=== PATIENT | male | born 1970 | race Caucasian/White ===

== ENCOUNTER 2019-11-22 16:39 | Inpatient (IN) | payer BC, OTHER ==
[~2019-11-22] VITALS: Ht 157.5 cm; Wt 70.3 kg
[2019-11-22 16:44] VITALS: BP 116/48
[2019-11-22 17:45] LABS: CALCIUM 7.7 mg/dL (8.5-10.1); CREATININE 0.8 mg/dL (0.7-1.3); POTASSIUM 3.8 mmol/L (3.5-5.1)
[2019-11-22 17:48] LABS: % SATURATION 2 % (20-39); IRON 11 ug/dL (65-175); TIBC 482 ug/dL (250-450)
[2019-11-22 17:51] LABS: ALBUMIN 3.3 g/dL (3.4-5.0); TOTAL BILIRUBIN 0.8 mg/dL (0.2-1.0); TOTAL PROTEIN 6.9 g/dL (6.4-8.2)
[2019-11-22 17:57] LABS: MCH 18.4 pg (26.0-34.0); MCHC 29.4 g/dL (28.0-37.0); MCV 62.4 fL (80.0-100.0); PLATELET COUNT 92 thou/uL (150-400); RBC 2.02 mil/uL (4.50-6.00); RDW 20.4 % (10.5-14.5); WBC 2.5 thou/uL (4.0-11.0)
[2019-11-22 17:59] LABS: HEMATOCRIT 12.6 % (42.0-52.0); HEMOGLOBIN 3.7 gm/dL (14.0-18.0)
[2019-11-22 18:26] LABS: ABSOLUTE NEUTROPHILS 1.7 thou/uL (1.4-8.2)
[2019-11-22 18:27] LABS: ANISOCYTOSIS 2+; HYPOCHROMASIA 3+; MICROCYTES 3+
[2019-11-22 18:29] LABS: OVALOCYTES 1+; POIKILOCYTOSIS 1+
[2019-11-22 18:30] LABS: POLYCHROMASIA OCCASIONAL; SCHISTOCYTES OCCASIONAL
[2019-11-22 18:43] VITALS: BP 102/55; BP 102/58; BP 103/58; BP 109/64; BP 97/58
[2019-11-22 19:50] LABS: ABSOLUTE RETIC COUNT 0.0587 10^6/uL
[2019-11-22 20:04] LABS: INR 1.1; PROTIME 10.8 Seconds (9.3-11.4)
[2019-11-22 20:07] VITALS: BP 112/71
[2019-11-22 20:14] VITALS: BP 112/71
[2019-11-22 20:19] LABS: FOLIC ACID 20.1 ng/mL (8.6-58.9)
[2019-11-22 20:59] VITALS: BP 109/64
[2019-11-22 21:26] VITALS: BP 114/63
[2019-11-23] VITALS (8 sets, daily range): BP systolic 88–117; BP diastolic 51–70
--- NOTE | 2019-11-23 00:27 | NUR ---
PT ADMITTED TO UNIT AT APPROXIMATELY 2130. PT IS A/O X4. DENIES ANY PAIN OR DISCOMFORT. VSS. ADMISSION COMPLETE. REFUSED SCD'S. PT IS UP AD OBDULIA. EDUCATED ON HOW TO USE CALL LIGHT. AT THIS TIME PT IS LYING IN HIS BED AND APPEARS TO BE SLEEPING. WILL CONTINUE TO MONITOR. AWAITING LAB RESULTS ON HGB.
[2019-11-23] MEDS ORDERED: FUROSEMIDE 20 M20 MG PO (02:23)
[2019-11-23 11:55] LABS: MCH 21.5 pg (26.0-34.0)
[2019-11-23 11:57] LABS: HEMATOCRIT 22.2 % (42.0-52.0); MCHC 30.4 g/dL (28.0-37.0); RBC 3.14 mil/uL (4.50-6.00); RDW 26.9 % (10.5-14.5); WBC 2.3 thou/uL (4.0-11.0)
[2019-11-23 12:07] LABS: HEMOGLOBIN 6.7 gm/dL (14.0-18.0); MCV 70.7 fL (80.0-100.0)
[2019-11-23 12:13] LABS: CALCIUM 7.9 mg/dL (8.5-10.1); CREATININE 0.7 mg/dL (0.7-1.3); POTASSIUM 4.3 mmol/L (3.5-5.1)
--- NOTE | 2019-11-23 12:43 | NUR ---
Received awake on bed. On nothing per orem- pt informed and aware; mouth swabs offered. A+Ox4. On room air.On telemetry; no complains of chest pain, crushing sensation and heaviness. Continent of bowel and bladder, able to use urinal- output measured and recorded accordingly. Assisted in ADLs. With NS at 100cc/hr, infusing well at R FA. Started 2nd unit of blood transfusion, infused as per protocol. With consult for GI, and Hematology- consults called in. No nausea, no vomiting and no abdominal pain noted. Pt seen and examined by Dr Adams this AM: requested for records from [facility]- forms signed and faxed to [facility], a/w response; Surgery consult- called in, a/w physician's rounds, for ultrasound- pt brought down for ultrasound, tolerated procedure well. Covid swab done, possible EGD in AM. Gastro STONE TRIMMER asked if pt can have clear liquid diet today since planned procedure is for tomorrow- as per STONE TRIMMER, pt can have Clear liquid today then NPO post midnight. Hb for 6.7 post 3rd unit relayed to Gastro STONE TRIMMER and Dr Bey; as per Dr Bey to transfuse another unit- a/w orders. To continue monitoring patient.
[2019-11-23 21:13] LABS: HEMOGLOBIN 7.4 gm/dL (14.0-18.0)
--- NOTE | 2019-11-23 21:50 | NUR ---
ASSUMED CARE OF PT AT 1900. PT IS A/O X4 AND UP AD OBDULIA. UP SBA WHEN IV IS IN PLACE GIVING FLUIDS. PT DENIES ANY PAIN OR DISCOMFORT AT THIS TIME. AFEBRILE. PT STATES HE IS FEELING THAT HE HAS MORE ENERGY SINCE HE WAS GIVEN BLOOD TRANSFUSIONS. 2029 LAB RESULT FOR HEMOGLOBIN WAS 7.4. AT THIS TIME PT IS LYING IN HIS BED AND APPEARS TO BE SLEEPING. CALL LIGHT IS WITHIN REACH. WILL CONTINUE TO MONITOR.
[2019-11-24 05:57] VITALS: BP 105/60
[2019-11-24 07:39] VITALS: BP 106/65
[2019-11-24 12:39] VITALS: BP 111/77
[2019-11-24 13:18] LABS: HEMATOCRIT 25.1 % (42.0-52.0); HEMOGLOBIN 7.7 gm/dL (14.0-18.0); MCH 22.1 pg (26.0-34.0); MCHC 30.7 g/dL (28.0-37.0); RBC 3.49 mil/uL (4.50-6.00); RDW 26.7 % (10.5-14.5); WBC 2.3 thou/uL (4.0-11.0)
--- NOTE | 2019-11-24 13:43 | NUR ---
PT ADMITTED RELATED TO ANEMIA REQUIRING TRANSFUSION. CM REVIEWED CHART AND SPOKE WITH CARE TEAM. CM SPOKE WITH PT AT [facility] THIS DAY. PT IS A&O X4. CM ROLE INTRODUCED. PT INDICATED THAT HE RESIDES IN A HOUSE WITH FAMILY. PT INDICATED NO STEPS TO ENTER AND 1 STEP INSIDE. 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 PT INDICATED HE PLANS TO RETURN HOME ONCE MEDICALLY STABLE. PT HAD RECIEVED BLOOD TRANSFUSION DURING STAY AND IS GETTING AN EGD TODAY. CARE TEAM INDICATED PT MAY BE MEDICALLY STABLE TO DC HOME TODAY DEPENDING ON EGD. CM TO FOLLOW INDICATED WITH DC PLANNING.
[2019-11-24 16:05] VITALS: BP 118/80
[2019-11-24 19:44] VITALS: BP 11/62
--- NOTE | 2019-11-25 02:52 | NUR ---
PATIENT AOX4 MAKES NEEDS KNOWN. PATIENT USES URINAL AT NIGHT. NO BLEEDING NOTED THIS SHIFT. PATIENT UP AT OBDULIA. PATIENT IN BED ASLEEP AT THIS TIME BREATHING REGULAR AND UNLABOURED.
[2019-11-25 06:21] LABS: HEMATOCRIT 25.2 % (42.0-52.0); HEMOGLOBIN 7.8 gm/dL (14.0-18.0); MCH 22.5 pg (26.0-34.0); MCV 72.5 fL (80.0-100.0); RBC 3.47 mil/uL (4.50-6.00); RDW 27.7 % (10.5-14.5); WBC 2.3 thou/uL (4.0-11.0)
[2019-11-25 06:43] LABS: CREATININE 0.8 mg/dL (0.7-1.3); MAGNESIUM 1.9 mg/dL (1.8-2.4); POTASSIUM 4.1 mmol/L (3.5-5.1)
[2019-11-25 07:54] VITALS: BP 115/60
[2019-11-25] MEDS ORDERED: ALDACTONE50 MG PO (09:55)
[2019-11-25] MEDS ORDERED: FUROSEMIDE 20 M20 MG PO (09:55)
[2019-11-25] MEDS ORDERED: PROTONIX40 M4 PO (09:56)
[2019-11-25] MEDS ORDERED: PROPRANOLOL 1010 MG PO (10:00)
[2019-11-25] MEDS ORDERED: IRON325 PO (10:04)
--- NOTE | 2019-11-25 10:14 | P ---
[facility] [place] [address] PROCEDURE REPORT Name: JUDIE BURNETTJENNIFER Room #: 455-P [facility] IN ..#: [id number] Admission: 11/22/19 Attend Phys: Trav Matosn MD Discharge: Date of : 66 Report #: [id number] THIS REPORT FOR: cc: Dorinda Estrada MD, Nora P. MD McElhinney, Christian C. MD ~ CC: Dr. Per Adams MD DATE OF SERVICE: 11/24/2019 PROCEDURE PERFORMED: Upper endoscopy. HISTORY OF PRESENT ILLNESS: The patient is a 49-year-old male with a history of cirrhosis, ascites and reportedly esophageal varices, which have been banded in the past, last one being over a year ago. The patient denies any melena, bright red blood per rectum, no nausea, vomiting, no hematemesis; however, on admission, he was noted to have significant anemia with a hemoglobin of 3.7. He has now been transfused 4 units of packed cells. His hemoglobin today is 7.7. Again, denies any evidence of bleeding. In fact, he had a stool here that was Hemoccult negative x 1. He is also pancytopenic with a white blood cell count of 2.3 and a platelet count of 65,000. Plan is for upper endoscopy. DESCRIPTION OF PROCEDURE: The risks and benefits of the procedure were explained to the patient, those risks including but not limited to bleeding, perforation, the risk of sedation as well as potential risk for bleeding. He understood these risks and gave informed consent. Sedation was given using propofol per anesthesia. Next, using a standard Olympus upper endoscope, the scope was placed in the patient's mouth and advanced under direct vision through the esophagus, stomach and into the second portion of the duodenum. The larynx was normal in appearance. The upper and mid esophagus was normal. In the distal esophagus, grade 2 esophageal varices were noted. There was no evidence of bleeding or stigmata of recent bleeding. There was one red spot; however, this was an area that was flat; therefore, I would not attempt banding, as far as the grade 2 varices these were fairly small and I did not feel like banding would be helpful in fact may induce bleeding. In the stomach, there was a [id number]-mx-[id number] gastritis in the fundus and upper body. No evidence of bleeding. The antrum was normal. The pylorus was normal and patent. The duodenal bulb, first and second portion were all normal. The scope was then withdrawn and the procedure terminated. The patient tolerated the procedure well. IMPRESSION: [facility] [address] [place] [address] PROCEDURE REPORT Name: JENNIFER AGUIRRE Room #: 455-P [facility] M.R.#: [id number] Admission: 11/22/19 Attend Phys: Trav Matson MD Discharge: Date of : 66 Report #: [id number] 1. Grade 2 esophageal varices in the distal esophagus, 1 red spot again on a flat area of mucosa not able to consider banding this. Again, he is Hemoccult negative and there are no signs of bleeding at this time. 2. Gastritis. No evidence of bleeding. 3. Otherwise, normal upper endoscopy. RECOMMENDATIONS: 1. Would continue daily PPI therapy. 2. Would consider possible banding of other varices if there are signs of bleeding in the future. 3. Would recommend a beta ravin and continuing the patient's diuretics. We will continue to monitor hemoglobin. Thank you for allowing me to participate in his care. <ELECTRONICALLY SIGNED> By: Colin Peres MD 11/25/19 1014 [id number] [id number] Colin Peres MD /nt
[2019-11-25 10:21] VITALS: BP 115/60
--- NOTE | 2019-11-25 10:31 | NUR ---
PT ALERT AND ORIENTED TIMES FOUR. VSS, IVF INFUSING PER ORDER. SR ON MULUGETA. PT DENIES PAIN/SOA. PT UP WITH STANDBY ASSIST. PT TOLERATES MEDS AND MEALS. PLANS FOR DISCHARGE TODAY PT PROGRESSING TOWRADS POC GOALS.
--- NOTE | 2019-11-25 13:51 | NUR ---
CARE TEAM INDICATED THAT PT IS MEDICALLY STABLE TO DISCHARGE THIS DAY WITH OP GI FOLLOW UP. PT IS TO DC HOME TO SELF CARE. NO OTHER CM INTERVENTION INDICATED. CASE CLOSED.
== END 2019-11-25 12:09 | disposition home or self-care (01) | DRG 378 ==
LOC: ER 16:39 → EROBS 18:46 → 4W 18:46
PROVIDERS: Internal Medicine; Nurse Practitioner Family; Physician Assistant; Student in an Organized Health Care Education/Training Program; ADMIT Hospitalist; ATTEND Hospitalist
PROC: 30233N1 Transfusion of Nonautologous Red Blood Cells into Peripheral Vein, Percutaneous Approach (ICD-10-PCS; principal; 2019-11-22)
PROC: 0DJ08ZZ Inspection of Upper Intestinal Tract, Via Natural or Artificial Opening Endoscopic (ICD-10-PCS; 2019-11-24)
DX: K92.2 Gastrointestinal hemorrhage, unspecified (principal); R18.8 Other ascites; D50.9 Iron deficiency anemia, unspecified; K43.9 Ventral hernia without obstruction or gangrene; K74.60 Unspecified cirrhosis of liver; D69.6 Thrombocytopenia, unspecified; F10.20 Alcohol dependence, uncomplicated; K42.9 Umbilical hernia without obstruction or gangrene; Z79.899 Other long term (current) drug therapy
CPT/HCPCS: 10045; 62110; 62900; 70005

== ENCOUNTER → 2020-01-06 | Outpatient (CLI) | payer BC, OTHER ==
[~2020-01-06] MED LIST: ALDACTONE50 MG PO; FUROSEMIDE 20 M20 MG PO; IRON325 PO; MIRALAX17 GM PO; OXYCODONE HCL 55 MG PO; PROPRANOLOL 1010 MG PO; PROTONIX40 M4 PO; SENNA-TIME S T1 EACH PO
== END ==
LOC: LAB 14:37
PROVIDERS: ATTEND Student in an Organized Health Care Education/Training Program
DX: Z01.812 Encounter for preprocedural laboratory examination (principal); Z20.828 Contact with and (suspected) exposure to other viral communicable diseases

== ENCOUNTER 2020-01-10 06:22 | Day surgery (SDC) | payer BC, OTHER ==
[~2020-01-10] VITALS: Ht 157.5 cm; Wt 67.1 kg
[~2020-01-10 06:22] MED LIST changes: -MIRALAX17 GM PO; -OXYCODONE HCL 55 MG PO; -SENNA-TIME S T1 EACH PO
[2020-01-10 07:25] LABS: CALCIUM 8.7 mg/dL (8.5-10.1); CREATININE 0.8 mg/dL (0.7-1.3); INR 1.1; POTASSIUM 3.9 mmol/L (3.5-5.1); PROTIME 11.4 Seconds (9.3-11.4)
[2020-01-10 07:26] LABS: HEMATOCRIT 39.8 % (42.0-52.0); MCH 29.3 pg (26.0-34.0); MCHC 32.7 g/dL (28.0-37.0); MCV 89.5 fL (80.0-100.0); RBC 4.45 mil/uL (4.50-6.00); RDW 26.3 % (10.5-14.5)
[2020-01-10 07:31] LABS: ALBUMIN 3.8 g/dL (3.4-5.0); TOTAL BILIRUBIN 1.3 mg/dL (0.2-1.0); TOTAL PROTEIN 7.4 g/dL (6.4-8.2)
[2020-01-10 07:48] VITALS: BP 109/78
[2020-01-10] MEDS ORDERED: MIRALAX17 GM PO (09:29)
[2020-01-10] MEDS ORDERED: OXYCODONE HCL 55 MG PO (09:29)
[2020-01-10] MEDS ORDERED: SENNA-TIME S T1 EACH PO (09:30)
[2020-01-10 09:50] VITALS: BP 109/78
--- NOTE | 2020-01-12 18:07 | PATH ---
[facility] [address] [place] [address] PATHOLOGY RPT PROCEDURE Name: PATRICK AGUIRRE Room #: [place] [facility] [place].R.#: [id number] Admission: 01/10/20 Date of : 66 Discharge: 01/10/20 Report #: [id number] Path Case #: [id number] [facility] Accession Number: [id number] . 01 Material submitted: . hernia - UMBILICAL HERNIA SAC . 01 Clinical history: . UMBILICAL HERNIA AND CIRRHOSIS . 02 Diagnosis: Umbilical hernia sac, repair: - Dense fibrovascular connective tissue with congestion and reparative changes, compatible with hernia sac. - Overlying skin showing reactive changes. (IUV/db; 01/12/2020) LBQ 01/12/2020 1521 Local . 02 Electronically signed: . Anabel Coker MD, Pathologist NPI- [id number] . 01 Gross description: . The specimen is received in formalin, labeled "Patrick Red[place], umbilical hernia sac". Received is a segment of wrinkled light brown skin with attached fibromembranous tissue measuring 7.9 x 6.3 x 2.8 cm in greatest dimensions. No distinct nodules or lesions are noted grossly. The specimen is submitted representatively in cassette A1. (CAA; 01/11/2020) QA/[facility] 01/11/2020 1757 Local . 02 Pathologist provided ICD-10: K44.9, K74.60 . 02 CPT . 903304 Specimen Comment: A courtesy copy of this report has been sent to [phone] Specimen Comment: [phone] Specimen Comment: Report sent to / DR MARRERO Performed at: [address] [id number] MD Ramses Collins MD Phone: [phone] Performed at: [address] [id number] [address] [address] PATHOLOGY RPT PROCEDURE Name: PATRICK AGUIRRE Room #: [place] [facility] M.R.#: [id number] Admission: 01/10/20 Date of : 66 Discharge: 01/10/20 Report #: [id number] Path Case #: [id number] MD Anabel Coker MD Phone: [phone]
== END 2020-01-10 11:15 | disposition home or self-care (01) ==
LOC: OR 06:22 → TBA 06:22 → OR 11:15
PROVIDERS: ATTEND Surgery
DX: K42.9 Umbilical hernia without obstruction or gangrene (principal); K74.60 Unspecified cirrhosis of liver; D64.9 Anemia, unspecified; Z98.890 Other specified postprocedural states; Z79.899 Other long term (current) drug therapy
CPT/HCPCS: 50010; 50101; 50386; 50417; 51904; 56524; 56525; 56526; 57108; 62110; 62900; 70005

== ENCOUNTER 2020-01-12 22:03 | Emergency (ER) | payer BC, OTHER ==
[~2020-01-12] VITALS: Ht 160 cm; Wt 68.0 kg
[~2020-01-12 22:03] MED LIST changes: +MIRALAX17 GM PO; +OXYCODONE HCL 55 MG PO; +SENNA-TIME S T1 EACH PO
[2020-01-12 23:44] LABS: ABSOLUTE NEUTROPHILS 3.7 thou/uL (1.4-8.2); BASOPHILS 0.4 % (0.0-2.0); EOSINOPHILS 0.8 % (0.0-3.0); HEMATOCRIT 39.4 % (42.0-52.0); LYMPHOCYTES 12.8 % (24.0-44.0); MCH 29.9 pg (26.0-34.0); MCHC 32.9 g/dL (28.0-37.0); MCV 91.1 fL (80.0-100.0); MONOCYTES 9.7 % (1.0-8.0); PLATELET COUNT 59 thou/uL (150-400); POLYS 76.3 % (36.0-66.0); RBC 4.33 mil/uL (4.50-6.00); RDW 24.2 % (10.5-14.5); WBC 4.8 thou/uL (4.0-11.0)
[2020-01-12 23:46] LABS: CALCIUM 8.9 mg/dL (8.5-10.1); CREATININE 0.8 mg/dL (0.7-1.3)
[2020-01-12 23:50] LABS: APTT 29.4 Seconds (24.5-32.8); PROTIME 10.7 Seconds (9.3-11.4)
[2020-01-12 23:51] LABS: ALBUMIN 3.4 g/dL (3.4-5.0); TOTAL BILIRUBIN 1.2 mg/dL (0.2-1.0); TOTAL PROTEIN 7.6 g/dL (6.4-8.2)
[2020-01-13 01:08] VITALS: BP 110/74
--- NOTE | 2020-01-13 11:57 | EKG ---
[facility] [place] [address] ELECTROCARDIOGRAM REPORT Name: TIMOTHYJENNIFER Room #: DEP [facility]#: [id number] Admission: 01/12/20 Attend Phys: Discharge: 01/13/20 Date of : 66 Report #: [id number] THIS REPORT FOR: cc: Dorinda Estrada MD, Nora P. MD Santiago, Patrick MD [facility] ~ THIS REPORT FOR: //name// [facility] ED Test Date: 2020-01-12 Test Time: 23:43:14 Pat Name: JENNIFER BUNRETT Department: Room: Gender: Pvc Loader: : 1970 Requested By: Torsten Mirza Order Number: [id number] MD: Abel Robb Measurements Intervals [place] Rate: 79 P: 50 HI: 129 QRS: 68 QRSD: 102 T: 53 QT: 387 QTc: 444 Interpretive Statements Sinus rhythm No previous ECG available for comparison Electronically Signed On 01-13-2020 11:57:28 GEAR GENERATOR SET UP OPERATOR by Abel Rbob [email or web address] <ELECTRONICALLY SIGNED> By: Abel Robb MD, FAC 01/13/20 1157 D: 11/2342 42 Abel Robb MD, FACC /EPI
== END 2020-01-13 01:09 | disposition home or self-care (01) ==
LOC: ER 22:03
PROVIDERS: Emergency Medicine
DX: K59.00 Constipation, unspecified (principal); R06.02 Shortness of breath; R07.89 Other chest pain; Z98.890 Other specified postprocedural states; Z79.899 Other long term (current) drug therapy

== ENCOUNTER 2020-05-28 23:37 | Emergency (ER) | payer BC, OTHER ==
[~2020-05-28] VITALS: Ht 157.5 cm; Wt 68.0 kg
[2020-05-29 00:42] LABS: ABSOLUTE NEUTROPHILS 2.7 thou/uL (1.4-8.2); BASOPHILS 0.4 % (0.0-2.0); HEMATOCRIT 35.2 % (42.0-52.0); HEMOGLOBIN 11.5 gm/dL (14.0-18.0); LYMPHOCYTES 13.9 % (24.0-44.0); MCH 26.9 pg (26.0-34.0); MCHC 32.5 g/dL (28.0-37.0); MCV 82.5 fL (80.0-100.0); MONOCYTES 7.1 % (1.0-8.0); PLATELET COUNT 60 thou/uL (150-400); POLYS 77.6 % (36.0-66.0); RBC 4.27 mil/uL (4.50-6.00); RDW 16.4 % (10.5-14.5); WBC 3.5 thou/uL (4.0-11.0)
[2020-05-29 00:42] LABS: URINE BILIRUBIN NEGATIVE (Negative); URINE BLOOD NEGATIVE (Negative); URINE CLARITY CLEAR; URINE COLOR YELLOW; URINE GLUCOSE-RANDOM* NEGATIVE (Negative); URINE KETONES NEGATIVE (Negative); URINE LEUKOCYTES-REFLEX NEGATIVE (Negative); URINE NITRITE-REFLEX NEGATIVE (Negative); URINE PROTEIN (DIPSTICK) NEGATIVE (Negative); URINE SPECIFIC GRAVITY 1.015 (1.005-1.035)
[2020-05-29 00:49] LABS: ANION GAP 10 mmol/L (7-16); BUN 7 mg/dL (7-18); CALCIUM 8.8 mg/dL (8.5-10.1); CHLORIDE 103 mmol/L (98-107); CO2 26 mmol/L (21-32); CREATININE 0.8 mg/dL (0.7-1.3); GLUCOSE 139 mg/dL (74-106); SODIUM 139 mmol/L (136-145)
[2020-05-29 00:53] LABS: POTASSIUM 2.9 mmol/L (3.5-5.1)
[2020-05-29 00:54] LABS: AMP/METHAMP Negative (Negative); BARBITURATES Negative (Negative); BENZODIAZEPINES Negative (Negative); COCAINE Negative (Negative); METHADONE Negative (Negative); OPIATES Negative (Negative); PCP Negative (Negative)
[2020-05-29 00:58] LABS: ALBUMIN 3.3 g/dL (3.4-5.0); SGOT 44 U/L (15-37); SGPT 38 U/L (16-63); TOTAL BILIRUBIN 1.1 mg/dL (0.2-1.0); TOTAL PROTEIN 6.8 g/dL (6.4-8.2); TROPONIN-I <0.06 ng/mL (<0.06)
[2020-05-29 05:22] VITALS: BP 120/68
--- NOTE | 2020-05-29 15:58 | EKG ---
[facility] [address] [place] [address] ELECTROCARDIOGRAM REPORT Name: JUDIE BURNETTJENNIFER [id number] Admission: 05/28/20 Attend Phys: Discharge: 05/29/20 Date of : 66 Report #: [id number] [facility] ED Test Date: 2020-05-29 Test Time: 00:02:00 Pat Name: JENNIFER BURNETT Department: Room: Gender: M Structural Test Engineer: mpark : 1970 Requested By: Roxie Patel Order Number: [id number] MD: Abel Robb Measurements Intervals [place] Rate: 76 P: -12 IL: 111 QRS: 78 QRSD: 110 T: 73 QT: 399 QTc: 449 Interpretive Statements Sinus rhythm Borderline short [place] interval Compared to ECG 01/12/2020 23:43:14 No significant changes Electronically Signed On 05-29-2020 15:58:35 CDT by Abel Robb [email or web address] <ELECTRONICALLY SIGNED> By: Abel Robb MD, [facility] 05/29/20 1558 0002 0002 Abel Robb MD, FACC /EPI
== END 2020-05-29 05:42 | disposition home or self-care (01) ==
LOC: ER 23:37
PROVIDERS: Emergency Medicine
DX: R53.83 Other fatigue (principal); F32.9 Major depressive disorder, single episode, unspecified; E87.6 Hypokalemia; E83.42 Hypomagnesemia; Z86.2 Personal history of diseases of the blood and blood-forming organs and certain disorders involving the immune mechanism; Z79.899 Other long term (current) drug therapy